=== PATIENT | male | born 1945 | race Caucasian/White ===

== ENCOUNTER 2018-02-19 15:08 | Outpatient (CLI) | payer OTHER, MEDICARE ==
[~2018-02-19 15:08] MED LIST: ASPI-845 PO; LEVO100T9 PO; LEVO750T46 PO; METO25TA6 PO
== END 2018-02-19 23:59 | disposition home or self-care (01) ==
LOC: RAD 15:08
PROVIDERS: ATTEND Otolaryngology
DX: R13.14 Dysphagia, pharyngoesophageal phase (principal); R49.0 Dysphonia; I69.391 Dysphagia following cerebral infarction; I10 Essential (primary) hypertension; J44.9 Chronic obstructive pulmonary disease, unspecified; Z79.82 Long term (current) use of aspirin; Z79.899 Other long term (current) drug therapy; Z87.891 Personal history of nicotine dependence
CPT/HCPCS: 74230

== ENCOUNTER 2018-05-22 10:05 | Outpatient (CLI) | payer OTHER, MEDICARE ==
[2018-05-22] MEDS ORDERED: BARIUM SULFATE 340 ML SUSP.RECON***PROCEDURE AREA ONLY**DONT ENTER PO ONE (10:25)
== END 2018-05-22 23:59 | disposition home or self-care (01) ==
LOC: RAD 10:05
PROVIDERS: ATTEND Internal Medicine
DX: R13.14 Dysphagia, pharyngoesophageal phase (principal); J44.9 Chronic obstructive pulmonary disease, unspecified; I10 Essential (primary) hypertension; Z79.82 Long term (current) use of aspirin; Z79.899 Other long term (current) drug therapy; Z87.891 Personal history of nicotine dependence
CPT/HCPCS: 74220

== ENCOUNTER 2019-03-20 18:29 | Emergency (ER) | payer MEDICARE, OTHER ==
[~2019-03-20] VITALS: Ht 167.6 cm; Wt 68.0 kg
[2019-03-20 19:15] VITALS: BP 125/82
[2019-03-20] MEDS ORDERED: LIDOcaine 2% 10ml TOPICAL JELLY (Urojet) MM ONE (20:15)
--- NOTE | 2019-03-20 20:23 | NUR ---
Note stephanie in EDM - 03/20/19 at 2025 by BRANDEN TALKED WITH PT ABOUT PLAN OF CARE TO REPLACE CATHETER. PT REFUSED CATHETER. PT AND DAUGHTER STATES THAT THEY DO NOT WANT CATHETER BACK IN PLACE SINCE PT WAS "CLEARED TO WALK ON HIP AND THAT WAS THE ONLY REASON HE HAD A CATHETER". DAUGHTER IS NOW STATING THEY ARE HERE FOR THE LOWER ABD PAIN. PT AND DAUGHTER ORIENTED TO BALDDER SCAN SHOWING URINARY RETENTION WITH NO URINATION SINCE STATES HE WANTS TO TRY TO URINATE
--- NOTE | 2019-03-20 20:26 | NUR ---
TALKED WITH PT ABOUT PLAN OF CARE TO REPLACE CATHETER. PT REFUSED CATHETER. PT AND DAUGHTER STATES THAT THEY DO NOT WANT CATHETER BACK IN PLACE SINCE PT WAS "CLEARED TO WALK ON HIP AND THAT WAS THE ONLY REASON HE HAD A CATHETER". DAUGHTER IS NOW STATING THEY ARE HERE FOR THE LOWER ABD PAIN. PT AND DAUGHTER ORIENTED TO BALDDER SCAN SHOWING URINARY RETENTION WITH NO URINATION SINCE 1400 TODAY. PT STATES HE WANTS TO TRY TO URINATE. PT GIVEN 30 MORE MINUTES TO TRY AGAIN AND OTHERWISE WE WOULD STRIAGHT CATHETER PT FOR URINE SAMPLE.
--- NOTE | 2019-03-20 21:03 | NUR ---
PT UNABLE TO URINATE. ADMINISTERED UROJET AND PLACED COUDE CATHETER, PT TOLERATED PROCEDURE WELL.
[2019-03-20 21:40] LABS: CLARITY,URINE SLIGHTLY CLOUDY (Clear); COLOR,URINE YELLOW (Yellow); GLUCOSE, URINE NEGATIVE (Neg); KETONES,URINE TRACE mg/dl (Neg); LEUKOCYTE ESTERASE ,URINE SMALL (Neg); NITRITES, URINE POSITIVE (Neg); OCCULT BLOOD,URINE NEGATIVE (Neg); PROTEIN,URINE NEGATIVE (Neg); UROBILINOGEN,URINE 0.2 E.U/dL (0.2-1.0)
[2019-03-20 21:42] LABS: UA COLLECTION TYPE STRAIGHT CATH
[2019-03-20 21:47] LABS: WBC,URINE 50-100 /HPF (0-4)
[2019-03-20 21:48] LABS: BACTERIA,URINE 3+ /HPF (Neg); RBC,URINE NONE SEEN /HPF (0-2)
[2019-03-20 21:49] LABS: MUCUS STRANDS MODERATE /LPF (Neg); SQUAMOUS EPITHELIAL CELL,UR NONE SEEN /LPF (FEW); WBC CLUMPS,URINE FEW /HPF (NEGATIVE)
[2019-03-20] MEDS ORDERED: FLO0.4C PO (21:52)
[2019-03-20] MEDS ORDERED: CEPH500C5 PO (21:52)
[2019-03-20] MEDS ORDERED: cephalexin 250mg capsule PO ONE (22:00)
== END 2019-03-20 22:12 | disposition home or self-care (01) ==
LOC: ER 18:29
DX: R33.9 Retention of urine, unspecified (principal); N39.0 Urinary tract infection, site not specified; I48.91 Unspecified atrial fibrillation; J44.9 Chronic obstructive pulmonary disease, unspecified; E03.9 Hypothyroidism, unspecified; G89.29 Other chronic pain; F17.210 Nicotine dependence, cigarettes, uncomplicated; G62.9 Polyneuropathy, unspecified; Z86.73 Personal history of transient ischemic attack (TIA), and cerebral infarction without residual deficits; Z98.890 Other specified postprocedural states; Z85.118 Personal history of other malignant neoplasm of bronchus and lung; Z88.0 Allergy status to penicillin; Z79.82 Long term (current) use of aspirin; Z79.899 Other long term (current) drug therapy
CPT/HCPCS: 51702; 81001; 87077; 87088; 87186; 99284

== ENCOUNTER 2019-03-21 00:24 | Emergency (ER) | payer OTHER, MEDICARE ==
[~2019-03-21] VITALS: Ht 167.6 cm; Wt 68.2 kg
[~2019-03-21 00:24] MED LIST changes: +CEPH500C5 PO; +FLO0.4C PO
[2019-03-21 00:25] VITALS: BP 133/78
[2019-03-21] MEDS ORDERED: acetaminophen 325mg tablet PO ONE (00:50)
[2019-03-21] MEDS ORDERED: traMADol 50MG tablet PO ONE (00:50)
[2019-03-21] MEDS ORDERED: LIDOcaine 2% 10ml TOPICAL JELLY (Urojet) MM ONE (00:50)
== END 2019-03-21 01:47 | disposition home or self-care (01) ==
LOC: ER 00:25
DX: T83.038A Leakage of other urinary catheter, initial encounter (principal); R33.9 Retention of urine, unspecified; I48.91 Unspecified atrial fibrillation; J44.9 Chronic obstructive pulmonary disease, unspecified; E03.9 Hypothyroidism, unspecified; G89.29 Other chronic pain; F32.9 Major depressive disorder, single episode, unspecified; Z98.890 Other specified postprocedural states; Z86.73 Personal history of transient ischemic attack (TIA), and cerebral infarction without residual deficits; Z88.0 Allergy status to penicillin; Z79.82 Long term (current) use of aspirin; Z79.2 Long term (current) use of antibiotics; Z79.899 Other long term (current) drug therapy; Y84.6 Urinary catheterization as the cause of abnormal reaction of the patient, or of later complication, without mention of misadventure at the time of the procedure; Y92.89 Other specified places as the place of occurrence of the external cause
CPT/HCPCS: 51702; 99284

== ENCOUNTER 2019-06-02 14:35 | Emergency (ER) | payer MEDICARE, OTHER ==
[~2019-06-02] VITALS: Ht 167.6 cm; Wt 70.0 kg
[~2019-06-02 14:35] MED LIST changes: -FLO0.4C PO
[2019-06-02 15:32] LABS: BASOPHILS % (AUTO) 0.3 % (0-1); EOSINOPHILS # (AUTO) 0.1 X10'3 (0-0.9); EOSINOPHILS % (AUTO) 0.5 % (0-6); HEMATOCRIT 40.8 % (42.0-52.0); HEMOGLOBIN 13.7 g/dl (14.0-17.9); LYMPHOCYTES # (AUTO) 0.6 X10'3 (1.1-4.8); LYMPHOCYTES % (AUTO) 3.8 % (21-51); MEAN CORPUSCULAR HEMOGLOBIN 28.2 PG (27.0-31.0); MEAN CORPUSCULAR HGB CONC 33.5 g/dL (33.0-36.5); MEAN CORPUSCULAR VOLUME 84.2 FL (78-98); MEAN PLATELET VOLUME 6.7 FL (7.4-10.4); MONOCYTES # (AUTO) 0.9 X10'3 (0-0.9); MONOCYTES % (AUTO) 6.3 % (2-12); NEUTROPHILS # (AUTO) 13.1 X10'3 (1.8-7.7); NEUTROPHILS % (AUTO) 89.1 % (42-75); PLATELET COUNT 583 X10'3 (140-440); RED BLOOD COUNT 4.85 X10'6 (4.70-6.10); RED CELL DISTRIBUTION WIDTH 13.7 % (11.5-14.5); WHITE BLOOD COUNT 14.8 X10'3 (4.5-11.0)
[2019-06-02 15:46] LABS: PARTIAL THROMBOPLASTIN TIME 36 SECONDS (22-32)
[2019-06-02 15:50] LABS: ALANINE AMINOTRANSFERASE 15 U/L (12-78); ALBUMIN 3.1 G/DL (3.4-5.0); ALBUMIN/GLOBULIN RATIO 0.9 (1.1-1.5); ALKALINE PHOSPHATASE 92 IU/L (46-116); ANION GAP 4 (8-16); ASPARTATE AMINO TRANSFERASE 13 U/L (10-37); BILIRUBIN,TOTAL 0.5 MG/DL (0.1-1.0); BLOOD UREA NITROGEN 9 MG/DL (7-18); BUN/CREATININE RATIO 13.2 (5.4-32.0); CALCIUM 8.5 MG/DL (8.5-10.1); CHLORIDE 89 MMOL/L (99-107); CREATININE 0.68 MG/DL (0.60-1.10); GLUCOSE 108 MG/DL (70-104); POTASSIUM 3.4 MMOL/L (3.5-5.1); SODIUM 126 MMOL/L (135-145); TOTAL CARBON DIOXIDE 32.9 MMOL/L (24-32); TOTAL PROTEIN 6.6 G/DL (6.4-8.2); eGFR > 90 ML/MIN
[2019-06-02 15:57] LABS: MAGNESIUM 1.7 MG/DL (1.5-2.4); TROPONIN I < 0.04 NG/ML (0.0-0.05)
[2019-06-02 16:12] LABS: CLARITY,URINE CLOUDY (Clear); COLOR,URINE YELLOW (Yellow); GLUCOSE, URINE NEGATIVE (Neg); KETONES,URINE 15 mg/dl (Neg); LEUKOCYTE ESTERASE ,URINE SMALL (Neg); NITRITES, URINE POSITIVE (Neg); OCCULT BLOOD,URINE NEGATIVE (Neg); PROTEIN,URINE NEGATIVE (Neg); UA COLLECTION TYPE VOIDED
[2019-06-02 16:17] VITALS: BP 161/106
[2019-06-02 16:19] LABS: BACTERIA,URINE 3+ /HPF (Neg); MUCUS STRANDS FEW /LPF (Neg); SQUAMOUS EPITHELIAL CELL,UR FEW /LPF (FEW)
[2019-06-02 16:20] LABS: RBC,URINE 0-2 /HPF (0-2); WBC CLUMPS,URINE MODERATE /HPF (NEGATIVE); WBC,URINE TNTC /HPF (0-4)
[2019-06-02] MEDS ORDERED: levoFLOXACIN 250mg tablet PO ONE (16:30)
[2019-06-02] MEDS ORDERED: LEVO500T2 PO (16:30)
[2019-06-05] MEDS ORDERED: METO25TA6 PO (22:33)
[2019-06-05] MEDS ORDERED: DRON5CAP2 PO (22:33)
[2019-06-05] MEDS ORDERED: FLO0.4C PO (22:33)
[2019-06-05] MEDS ORDERED: APIX2.5T PO (22:33)
[2019-06-05] MEDS ORDERED: CIPR-230 PO (22:33)
[2019-06-05] MEDS ORDERED: LISI10TA4 PO (22:33)
[2019-06-05] MEDS ORDERED: ZOLP10TA5 PO (22:33)
[2019-06-05] MEDS ORDERED: ACET-2119 PO (22:33)
[2019-06-05] MEDS ORDERED: OMEP-297 PO (22:33)
== END 2019-06-02 17:37 | disposition home or self-care (01) ==
LOC: ER 14:36
DX: N39.0 Urinary tract infection, site not specified (principal); R06.00 Dyspnea, unspecified; R06.02 Shortness of breath; R51 Headache; R41.82 Altered mental status, unspecified; F03.90 Unspecified dementia, unspecified severity, without behavioral disturbance, psychotic disturbance, mood disturbance, and anxiety; I48.91 Unspecified atrial fibrillation; J44.9 Chronic obstructive pulmonary disease, unspecified; E03.9 Hypothyroidism, unspecified; G89.29 Other chronic pain; F32.9 Major depressive disorder, single episode, unspecified; G62.9 Polyneuropathy, unspecified; F10.99 Alcohol use, unspecified with unspecified alcohol-induced disorder; Z86.73 Personal history of transient ischemic attack (TIA), and cerebral infarction without residual deficits; Z98.890 Other specified postprocedural states; Z85.118 Personal history of other malignant neoplasm of bronchus and lung; Z88.0 Allergy status to penicillin; Z79.2 Long term (current) use of antibiotics; Z79.82 Long term (current) use of aspirin; Y90.9 Presence of alcohol in blood, level not specified
CPT/HCPCS: 36415; 71045; 80053; 81001; 83605; 83735; 83880; 84145; 84484; 85025; 85610; 85730; 87040; 87077; 87088; 87186; 93005; 99284